=== PATIENT | female | born 1975 | race Caucasian/White ===

== ENCOUNTER 2017-05-07 13:43 | Emergency (ER) | payer MEDICAID ==
[~2017-05-07] VITALS: Wt 63.6 kg
[2017-05-07] MEDS ORDERED: LORAZEPAM 2 MG INJ IV ONE (14:00)
[2017-05-07 14:06] LABS: ADD SCAN DIFF NO
[2017-05-07] MEDS ORDERED: FERR325C PO (14:16)
--- NOTE | 2017-05-07 14:16 | RADRPT ---
PROCEDURE: XR Chest. CLINICAL INDICATION: Chest pain TECHNIQUE: A single portable view of the chest was obtained. COMPARISON: None FINDINGS: The cardiomediastinal silhouette is within normal limits. The lungs and pleural spaces are clear. The soft tissues and osseous structures are unremarkable. IMPRESSION: No acute cardiopulmonary disease. RPTAT: HPNM Physician Patricia Date Time Electronically viewed and signed by Vlad Rivera Physician on 05/07/2017 14:15 /
[2017-05-07 14:24] LABS: BASOPHIL # 0.1 10^3/ul (0.0-0.1); BASOPHILS % 0.9 % (0.0-2.0); EOSINOPHILS # 1.2 10^3/ul (0.0-0.5); EOSINOPHILS % 15.2 % (0.0-7.0); HEMATOCRIT 35.9 % (37.0-47.0); HEMOGLOBIN 12.8 g/dl (12.0-16.0); INR 0.96; LYMPHOCYTES # 2.2 10^3/ul (0.8-2.9); LYMPHOCYTES % 27.8 % (15.0-51.0); MEAN CORPUSCULAR HEMOGLOBIN 32.2 pg (29.0-33.0); MEAN CORPUSCULAR HGB CONC 35.7 g/dl (32.0-37.0); MEAN CORPUSCULAR VOLUME 90.4 fl (82.0-101.0); MEAN PLATELET VOLUME 10.2 fl (7.4-10.4); MONOCYTE # 0.4 10^3/ul (0.3-0.9); MONOCYTES % 4.8 % (0.0-11.0); NEUTROPHILS % 50.7 % (39.0-77.0); PLATELET COUNT 257 10^3/UL (140-415); PROTIME 12.8 Sec (12.2-14.2); RED BLOOD COUNT 3.97 10^6/ul (4.20-5.40); RED CELL DISTRIBUTION WIDTH 12.2 % (11.5-14.5); WHITE BLOOD COUNT 7.9 10^3/ul (4.8-10.8)
--- NOTE | 2017-05-07 14:27 | ERD ---
ER Documentation Chief Complaint Date/Time DATE: 05/07/17 TIME: 14:25 Chief Complaint HPI 42-year-old female history of anxiety and hypertension who presents with chest pain after verbal argument. Just prior to arrival the patient was in a verbal argument and became emotionally upset. The patient is tearful and hyperventilating. She describes left-sided chest pain and palpitations with paresthesias to left upper extremity. She does describe very similar symptoms to anxiety and panic attacks in the past. She denies recent exertional symptoms , no smoking history, no family history of early cardiac disease. No recent travel, immobilization or surgery. ROS All systems reviewed and are negative except as per history of present illness. Medications Home Meds Reported Medications Ferrous Sulfate (Iron) Unknown Strength Capsule.er, 1 CAP PO BID, CAP 05/07/17 Allergies Allergies: Coded Allergies: No Known Allergy (Unverified , 05/07/17) FmHx Family History: No diabetes Physical Exam Physical Exam General: Well developed, well nourished, no acute distress Head: Normocephalic, atraumatic. Eyes: Pupils equally reactive, EOM intact ENT: Moist mucous membranes Neck: Supple, no lymphadenopathy Respiratory: Lungs clear bilaterally, no distress Cardiovascular: Slight tachycardia, no murmurs, rubs, or gallops Abdominal: Soft, non-tender, non-distended, no peritoneal signs : Deferred MSK: No edema, no unilateral swelling, 5/5 strength Neurologic: Alert and oriented, moving all extremities, normal speech, no focal weakness, no cerebellar signs Skin: No rash Psych: Normal mood Result Diagram: 05/07/17 1400 05/07/17 1400 Results 24 hrs Laboratory Tests Test 05/07/17 14:00 White Blood Count 7.910^3/ul Red Blood Count 3.9710^6/ul Hemoglobin 12.8g/dl Hematocrit 35.9% Mean Corpuscular Volume 90.4fl Mean Corpuscular Hemoglobin 32.2pg Mean Corpuscular Hemoglobin Concent 35.7g/dl Red Cell Distribution Width 12.2% Platelet Count 76892^3/UL Mean Platelet Volume 10.2fl Neutrophils % 50.7% Lymphocytes % 27.8% Monocytes % 4.8% Eosinophils % 15.2% Basophils % 0.9% Nucleated Red Blood Cells % 0.0/100WBC Neutrophils # 4.010^3/ul Lymphocytes # 2.210^3/ul Monocytes # 0.410^3/ul Eosinophils # 1.210^3/ul Basophils # 0.110^3/ul Nucleated Red Blood Cells # 0.010^3/ul Prothrombin Time 12.8Sec Prothrombin Time Ratio 1.0 INR International Normalized Ratio 0.96 Activated Partial Thromboplast Time 26.0Sec Sodium Level 138mmol/L Potassium Level 3.6mmol/L Chloride Level 103mmol/L Carbon Dioxide Level 24mmol/L Anion Gap 15 Blood Urea Nitrogen 16mg/dl Creatinine 0.84mg/dl Glucose Level 166mg/dl Calcium Level 9.0mg/dl Troponin I < 0.012ng/ml Serum HCG, Qualitative NEGATIVE Current Medications Medications (Trade) Dose Ordered Sig/Tamera Route PRN Reason Start Time Stop Time Status Last Admin Dose Admin Lorazepam (Ativan) 1 mg ONCE ONCE IV 05/07/17 14:00 05/07/17 14:01 DC 05/07/17 14:32 Procedures/MDM EKG, MONITORS, & DIAGNOSTIC IMAGING: EKG: I reviewed and interpreted a 12-lead EKG. Rhythm: Normal sinus rhythm Ectopy: None Intervals: No abnormalities ST segments: No elevations or depressions T waves: No contiguous inversions Chest x-ray: I reviewed and interpreted a 1 view of the chest Mediastinum: No enlargement Cardiac silhouette: No cardiomegaly Airspace: Clear lung major bilaterally without evidence of pneumothorax Bones: No evidence of fracture LAB INTERPRETATION: Negative troponin MEDICAL DECISION MAKING: The patient's history, physical exam and clinical presentation is most consistent with anxiety and panic attack. I have a very low clinical concern for cardiac etiology given limited risk factors, better alternative diagnosis. Based on the patient's clinical exam and history and risk factors, I have a much lower clinical concern for pulmonary embolism, acute aortic dissection, pneumothorax, pneumonia, cardiac tamponade HEART Score: 1 MACE Rate: Less than 1.7% Shared Decision Making: We had a conversation regarding risk stratification, MACE rate, and the risks, benefits, alternatives of disposition planning options. Disposition planning: I believe given her low risk profile single troponin would be appropriate. No indication for inpatient hospitalization or serial enzymes given risk of false positive testing ER COURSE:, Patient was given Ativan With complete resolution of her symptoms. I kept the patient and/or family informed of laboratory and diagnostic imaging results throughout the emergency room course. DISPOSITION PLAN: We discussed follow up with the patient's primary care doctor within 24 to 48 hours as needed. We also discussed return to the emergency room for worsening symptoms or worsening condition. Outpatient referral: [None required] Departure Diagnosis: Primary Impression: Atypical chest pain Additional Impression: Anxiety reaction Condition: Stable DEWEY SCHNEIDER MD May 07, 2017 14:27
[2017-05-07 14:28] LABS: ANION GAP 15 (8-16); BLOOD UREA NITROGEN 16 mg/dl (7-20); CARBON DIOXIDE 24 mmol/L (21-31); CHLORIDE 103 mmol/L (97-110); CREATININE 0.84 mg/dl (0.44-1.00); GLUCOSE 166 mg/dl (70-220); POTASSIUM 3.6 mmol/L (3.5-5.1); SODIUM 138 mmol/L (135-144)
[2017-05-07 14:42] LABS: TROPONIN-I < 0.012 ng/ml (0.00-0.12)
[2017-05-07 16:06] VITALS: BP 132/86; PULSE 82; RESP 11
== END 2017-05-07 16:03 | disposition home or self-care (01) ==
LOC: E/R 13:43
DX: R07.89 Other chest pain (principal); F41.1 Generalized anxiety disorder; I10 Essential (primary) hypertension
CPT/HCPCS: 36415; 71010; 80048; 84484; 84703; 85025; 85610; 85730; 96374; J2060; Z7502; 93005